=== PATIENT | female | born 1940 | race Caucasian/White ===

== ENCOUNTER 2023-10-15 11:52 | Day surgery (SDC) | payer OTHER, SELFPAY ==
[2023-10-11 09:50] VITALS: BMI 31.8
[2023-10-15] VITALS (11 sets, daily range): BP systolic 97–148; BP diastolic 38–68; PULSE 65–115; RESP 11–18; TEMP 36.2–36.9; O2SAT 93–100; BMI 31.8
--- NOTE | 2023-10-15 | DI.RAD.S_ITS ---
PROCEDURE: XR HIP W PEL IF DONE RT 2V INDICATIONS: RT TOTAL HIP TECHNIQUE: Multiple spot fluoroscopic intraoperative images. COMPARISON: None. FINDINGS: Multiple spot fluoroscopic intraoperative images demonstrate appropriate positioning of right hip arthroplasty components. Left hip arthroplasty is partially included. Overlying operative changes are present. IMPRESSION: Expected intraoperative appearance of a right hip arthroplasty. Approved by: Robe Reynaga M.D. on 10/16/2023 at 20:32
[2023-10-15] MEDS: MELOXICAM 7.5 MG TABLET PO (12:56)
[2023-10-15] MEDS: LACTATED RINGERS 1,000 ML 42 ML IV ×2 (12:56→16:46)
--- NOTE | 2023-10-15 13:01 | PM.PREOP ---
Pre-operative Note Interval Note History & Physical reviewed/Exam performed by Physician: Yes Changes to H&P: Yes H&P completed within 30 days and has changed as indicated here:: Upon review of old radiographs, left lower extremity has been longer than right ever since the initial left total hip replacement. On measurements of the non arthritic right hip from 2014, the left leg was 18 mm longer than the right. Therefore I will not restore equal leg lengths and the right side will be returned to its non arthritic state, which will still be shorter than the left side.
[2023-10-15] MEDS: TRANEXAMIC ACID 1,000 MG VIAL 1000 MG INJ ×2 (14:36→15:35)
[2023-10-15] MEDS: CEFAZOLIN 2 GM/100 ML PREMIX 100 ML IV ×2 (14:37→21:06)
--- NOTE | 2023-10-15 15:03 | SUR.OPER ---
Supine on padded Capac table with bilateral legs secured in padded positioning boots and suspended in positioning spars, operative leg in traction per surgeon. Head on one pillow. Arms secured on padded armboard <90 degrees abduction. Padded perineal post in place per surgeon.
[2023-10-15] MEDS: ROPIVACAINE/EPI/CLONIDINE/KET 50 ML SYRINGE INJ (15:27)
[2023-10-15] MEDS: SODIUM CHLORIDE IRRIG SOLUTION 250 ML, EPINEPHrine 1 MG IRR (15:29)
--- NOTE | 2023-10-15 18:03 | DI.RAD.S_ITS ---
PROCEDURE: XR HIP W PEL IF DONE RT 2V INDICATIONS: s/p total right hip arthroplasty TECHNIQUE: AP pelvis and lateral view of the hip acquired. COMPARISON: [facility] [place], [place]AS, XR PELVIS WITH LATERAL HIP RIGHT, 10/07/2023, 11:15. [facility] [place], CR, XR LUMBAR SPINE 2 OR 3 VIEWS, 09/07/2023, 16:32. [facility], CR, XR HIP W PEL IF DONE RT 2V, 10/15/2023, 15:20. FINDINGS: Bones: Patient is status post right hip arthroplasty, with hardware components in expected positions. The hip joint appears congruent. The visualized bony structures appear intact. Previous left hip arthroplasty is stable. Soft tissues: Overlying postoperative changes are noted. No suspicious soft tissue densities. IMPRESSION: Expected post-operative appearance of a hip arthroplasty. Dictated by: Millie Beatty M.D. on 10/15/2023 at 18:42 Approved by: Millie Beatty M.D. on 10/15/2023 at 18:43
--- NOTE | 2023-10-15 18:34 | SUR.PHASEI ---
Patient to recovery with no beebe catheter in place and no recorded urine output from the OR team. Bladder scan not available due to battery. Patient had a spinal during surgery and unable to move legs or regulate bladder. Inserted 16 serbian beebe catheter using sterile technique without difficulty. Clear yellow urine noted to drainage bag. Emptied 200 mls of urine.
[2023-10-15] MEDS: LACTATED RINGERS 1,000 ML 100 ML IV (19:43)
[2023-10-15] MEDS: DOCUSATE 100 MG CAPSULE PO (21:06)
[2023-10-15] MEDS: ASPIRIN EC 81 MG TABLET PO (21:06)
[2023-10-15] MEDS: IBUPROFEN 600 MG TABLET PO (21:08)
[2023-10-15] MEDS: ACETAMINOPHEN 325 MG TABLET 650 MG PO (21:09)
[2023-10-16] MEDS: ACETAMINOPHEN 325 MG TABLET 650 MG PO ×3 (01:51→13:04)
[2023-10-16] MEDS: IBUPROFEN 600 MG TABLET PO ×3 (01:52→13:05)
[2023-10-16 04:47] LABS: Hematocrit 30.3 % (36-46); Hemoglobin 10.4 g/dL (12.0-16.0)
[2023-10-16] MEDS: CEFAZOLIN 2 GM/100 ML PREMIX 100 ML IV (05:16)
[2023-10-16] MEDS: LACTATED RINGERS 1,000 ML 100 ML IV (05:18)
[2023-10-16 05:29] VITALS: BP 131/46; PULSE 70; RESP 17; TEMP 36.3; O2SAT 98
[2023-10-16 08:44] VITALS: BP 107/46; PULSE 83; RESP 19; TEMP 36.3; O2SAT 94
--- NOTE | 2023-10-16 08:50 | CM.DANOTE ---
DCP: Case received, EMR reviewed and met with patient. Introduced self and role. Was able to obtain information regarding patient's baseline activity status prior to hospitalization. DCP assessment completed with information currently available. Patient is an 83 year old female who admitted yesterday morning to the care of the hospitalist team. PCP: Dr. Escalera ([place] provider). Payer: confirmed: [facility]. Patient came to the hospital via private vehicle for a surgical procedure. Patient had right total hip surgery. Patient has history of osteoarthritis. Met with patient in her room. She was sitting up in bed, finished her breakfast, alert and oriented. Confirmed that she resides in [facility]. She resides alone, is a , but her friend, Kimmie, will be staying with her, and driving her to her ortho appointment follow up. Her sons live out of state, but will be with her after her friend leaves. Patient does have a cane and walker, at her baseline, she uses a cane. She has some stairs to get into her home, indicated, she has a really good banister rail that her had put in. Patient has not yet worked with physical therapy. P: DCP to continue to follow. Patient will work with [facility], and has outpatient therapy scheduled in [place]. Patient should be able to go home when deemed medically stable. Lorie Carson RN/Linen Supervisor Discharge Planning/Care Management CM Discharge Assessment Start: 10/16/23 08:46 Freq: Status: Active Protocol: Document 10/16/23 08:46 (Rec: 10/16/23 08:48 [id number]) Discharge Planning Assessment Assigned Family Reunification Specialist Lorie Carson RN/Linen Supervisor Advance Directives? No History Provided By Patient,Medical Record Prior Living Arrangements House Household Members none Type of transporation used prior to Drives own vehicle admit Independent with ADL's Yes Is patient alert and oriented? Yes Caregiver for Another No DME Already Rented / Owned FWW / Walker,Cane Patient/Family Preference OP PT Therapy Barriers to Discharge No Comment Patient's friend, Diya, will be staying with her until her sons can arrive. Discharge Plan Home Referrals Initiated None needed Whiteboard Updated in Patient Room with Yes name and ext. # of Family Reunification Specialist Review Status In Process Next Review Type Continued Stay Review Pre-Anesthesia Assessment Start: 10/11/23 09:50 Freq: Status: Active Protocol: Document 10/11/23 09:50 [facility] (Rec: 10/11/23 10:37 [facility] [id number]) Pre-Anesthesia Assessment Patient Information Reviewed Via Phone Assessment Assessment Completed With Patient Comment Outside labs/EKG scanned Primary Care Provider Neena Mancini PCP pre-op 09/17/23 scanned and in surgery folder for dos review Seen Specialist in Last 12 Months Yes Specialist Seen Binding Nicker,Orthopedist Primary Language Irish Laundrette Owner Required No Height 5 ft 6 in Weight 197 lb Body Mass Index (BMI) 31.8 Hearing Ability Normal Visual Assist Glasses Dentition Type Teeth, Natural Present Barriers to Learning None,Age related Hx Anesthesia Reactions No Hx Family Anesthesia Reaction No Hx Malignant Hyperthermia No Hx Blood Transfusions No Anesthesia Review Requested No Assistant Elementary Teacher No alcohol intake current alcohol intake frequency holidays/special occasions only Smoking Status Former smoker how long ago did patient quit smoking Quit age 23 Substance Use Type does not use Pain Present Pain Reported Musculoskeletal Symptoms Abnormal Gait,Difficulty Walking,Joint Pain,Muscle Weakness History of Falling (Recent or History of Yes ) Patient is completely paralyzed or No completely immobile Prosthesis or Orthotic Device Cane,Front Wheel Walker, Wheelchair Mental Status Oriented to own ability Is patient on oxygen? No Does patient have CLEMENT/SOB No Hx Sleep Apnea No Currently Taking a Beta Henri Yes: Metoprolol Hx Chest Pain No Hx SOB No Hx Syncope or Dizziness No Anti-Coagulant Therapy Yes: 81mg ASA-pt will check w/ Cardiology if needed to hold Has a Binding Nicker Yes: Pre-op visit 09/22/[address] Brandan Hamlin @ [facility] Cardiac Testing No: Per pt, Echo never ordered by Binding Nicker Hx Pacemaker/ICD No Pacemaker Rep Required? No Cardiac Clearance Received Yes Comment Cardiac records scanned and in surgery folder for dos Diet Type At Home Regular Dysphagia No Gastrointestinal Symptoms Constipation,Reflux Chronic UTI No Bladder Pattern Frequency Urinary Catheter Present No Hx Urinary Self Catheterization No Diabetes No HgbA1C 5.2 Date 09/05/23 Patient No Lactating No Hx Drug Resistant Organism No Presence of External or Internal Medical Yes: Left hip/knee prosthesis, Devices bilat eye IOLs, aortic valve Received a COVID vaccine? Yes Received all doses? Yes Marital Status / Lives With none Current Living Arrangements House Number of Floors (Floors) One Floor Support System Child/Children,Friend(s) Does the Patient Have Assistance After Yes: Friend will stay w/pt to Surgery assist with care at DC with sons assisting prn Patient Discharge Plan Description Return Home Comment Pt advised overnight length of stay per surgeon Feels Safe in Current Environment Yes Been Physically Hurt or Threatened By a No Person in Current Environment Do you have thoughts of harming yourself None or others? Are you currently considering suicide? No Do you have a plan to hurt yourself or No Plan others? Do You Have Any Spiritual Beliefs That No May Affect Your HC Choices? Do You Have Any Cultural Practices That No May Affect Your HC Choices? Comment Mat Who Can We Speak to About Patient's Care Family, friends Identifying Code for Release of Patient Declines to issue Information Health Care Proxy/Next of Kin Neal (son) Health Care Proxy Emergency Contact Name Jus (son) Niraj (friend) Emergency Contact Phone Number Jus: [phone] Niraj: Advance Directives? No Power of Lap Cutter No PAC Instructions Do not shave/clip surgical site,Durable medical equipment ,Medications to take/avoid, Nasal antibiotic,No ETOH/ petroleum product on skin DOS, NPO,Post-op transportation,Pre -surgical wash,Sensory aids, Sturdy shoes/comfortable clothes,Do not bring valuables and remove jewelry
--- NOTE | 2023-10-16 09:04 | DI.RAD.S_ITS ---
PROCEDURE: XR HIP W PEL IF DONE RT 2V INDICATIONS: Post-op GUILLE.... TECHNIQUE: AP pelvis with lateral view(s) of the right hip(s). COMPARISON: [facility], [place], XR HIP W PEL IF DONE RT 2V, 10/15/2023, 15:20. [facility] [place], [place], XR PELVIS WITH LATERAL HIP RIGHT, 10/07/2023, 11:15. [facility], [place], XR HIP W PEL IF DONE RT 2V, 10/15/2023, 18:02. FINDINGS: Bones: No fractures or dislocations. Pelvic ring appears intact. No suspicious bony lesions. Stable appearance of bilateral hip arthroplasties. Hardware is intact without hardware fracture or periprosthetic lucency to suggest loosening. Alignment is stable. Soft tissues: The visualized bowel gas pattern is normal. No suspicious soft tissue calcifications. Postsurgical soft tissue changes are present. IMPRESSION: Stable appearance of bilateral hip arthroplasties noting recent right postsurgical change. Dictated by: Millie Beatty M.D. on 10/16/2023 at 12:36 Approved by: Millie Beatty M.D. on 10/16/2023 at 12:38
[2023-10-16] MEDS: AMLODIPINE 5 MG TABLET PO (09:26)
[2023-10-16] MEDS: hydroCHLOROthiazide 25 MG TABLET 12.5 MG PO (09:26)
[2023-10-16 09:27] VITALS: BP 117/59; PULSE 82
[2023-10-16] MEDS: TRAMADOL 50 MG TABLET PO (09:27)
[2023-10-16] MEDS: ASPIRIN EC 81 MG TABLET PO (09:27)
[2023-10-16] MEDS: LOSARTAN 25 MG TABLET PO (09:27)
[2023-10-16] MEDS: DOCUSATE 100 MG CAPSULE PO (09:27)
[2023-10-16] MEDS: METOPROLOL IR 50 MG TABLET PO (09:27)
--- NOTE | 2023-10-16 09:39 | P.DS_ITS ---
History of Present Illness History of Present Illness Date Patient Seen: 10/16/23 Time Patient Seen: 09:39 Chief complaint: Right GUILLE *OPB* 10/15 Narrative: Pleasant 83 yo female who presented to Dr Price c/o debilitating right hip pain with no relief from conservative measures, including cortisone injection. She elected to proceed with total hip arthroplasty. Discharge Providers Provider Discharge Date: 10/16/23 Consults: 10/15/23 10:54 Consult to Anesthesiology Routine Comment: Consulting Provider: Anesthesiologist Reason for consultation: Regional block for post operative pain control 10/15/23 18:46 Consult to Discharge Planning Routine Comment: Consult to Discharge Planning Routine Comment: Consult to Occupational Therapy Evaluate & Treat Comment: Physician Instructions: Evaluate and treat Consult to Occupational Therapy Evaluate & Treat Comment: Physician Instructions: Evaluate and treat Consult to Physical Therapy Evaluate & Treat Comment: Physician Instructions: post op GUILLE protocol Consult to Physical Therapy Evaluate & Treat Comment: Physician Instructions: post op GUILLE protocol Discharge provider: Brenda House PA-C Summary Hospital Course Discharge Diagnosis: Right hip osteoarthritis, s/p right total hip arthroplasty. Hospital Course: Ms Rai's hospital course was unremarkable. On the morning of POD# 1, she was feeling well and wanted to go home. Her pain was well-controlled with oral medication. She had a urinary catheter in place d/t h/o urinary frequency; this will be removed prior to discharge. She was eating without difficulty. She had not yet been evaluated by PT. Exam Vital Signs (past 8 hours): - 10/16/23 05:29 10/16/23 08:44 10/16/23 09:27 Temperature 97.4 F L 97.4 F L Pulse Rate 70 83 82 Respiratory Rate 17 19 Blood Pressure 131/46 L 107/46 L 117/59 L Pulse Oximetry 98 94 Oxygen Flow Rate 0 0 Oxygen Delivery Method Room Air Oxygen Flow Rate 0 Narrative Exam Narrative: 5/5 strength in DF, PF, EHL; 4/5 hip flexors, quadriceps, hamstrings on right. Sensation to light touch intact throughout RLE; calf soft and compressible. Aquacel dressing CDI. Objective Labs 10/16/23 04:32 Labs: Laboratory Results - last 24 hr 10/16/23 04:32 Hgb 10.4 L Hct 30.3 L PFSH Medical History (Updated 10/11/23 @ 10:41 by Clotilde Jackson RN) History of COVID-19 (2022) Stress Easy bruisability Osteoarthritis Elevated cholesterol Degenerative scoliosis HTN (hypertension) Aortic ectasia CAD in [place] artery Nonrheumatic aortic (valve) stenosis Surgical History (Updated 10/11/23 @ 10:17 by Clotilde Jackson RN) Hx of tonsillectomy Hx of appendectomy H/O aortic valve replacement (05/2016) Hx of bilateral cataract extraction History of total left knee replacement (~2013) History of total left hip replacement (2014) Social History household members: none Smoking Status: Former smoker alcohol intake: current Discharge Assessment & Plan Assessment and Plan Assessment: Left knee osteoarthrits, s/p left total knee arthroplasty Plan of Treatment: Will obtain repeat xray of right hip after PT today to verify placement. If PT agrees and xray WNL, pt can discharge home. Has meds for postop. Outpt PT, f/u in office in 2 weeks as scheduled. Discharge Plan Discharge Plan Patient Disposition: Home Provider Discharge Comment: Follow up at [facility] in 2 weeks for post-op appointment Discharge orders & Medications Discharge Orders: Discharge (Order); Ordered 10/16/23 Ordered By: Brenda House Prescriptions: Continued amlodipine 5 mg Tablet 5 mg PO DAILY aspirin 81 mg Tablet,Delayed Release (Dr/Ec) 81 mg PO DAILY acetaminophen 500 mg Tablet 1,000 mg PO BID losartan 25 mg Tablet 25 mg PO DAILY metoprolol tartrate 50 mg Tablet 50 mg PO BID docusate sodium [Colace] 100 mg Capsule 100 mg PO BID Patient Comments: takes 200mg qam, 100mg qam omeprazole 20 mg Capsule,Delayed Release(Dr/Ec) 20 mg PO 2XW Rx Instructions: Takes on Wednesday & Wednesday hydrochlorothiazide 12.5 mg Tablet 12.5 mg PO DAILY Follow up/Referrals: Margarito Price MD [Physician] - 10/25/23 1:30 pm (Follow up w/ Brenda House PA-C, at [facility] office in [place].) Diet/Activity/Treatments Diet: Diet as Tolerated Activity: Weightbearing as tolerated to right leg, anterior hip precautions. Cold/Heat Therapy: Ice to hip as needed for pain. Skin/Wound/Dressing Care Report to your healthcare provider any signs of infection, such as:: chills, fever, night sweats, unusual drainage and unusual redness Dressing: May shower. Leave dressing in place until follow up in office. No bathing or otherwise soaking incision. Call the office if the dressing becomes saturated inside. Visit Report/Discharge Packet Instructions: DI for Hip Replacement, DI for Prescription Opioid Use Stand Alone Forms: Patient Portal/API, Surgery Discharge Discharge Data Attending Provider: Margarito Price
--- NOTE | 2023-10-16 10:30 | PT.IIE ---
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) Hx of appendectomy Hx of bilateral cataract extraction Hx of tonsillectomy Medical History (Last Updated 10/11/23 @ 10:41 by Clotilde Jackson RN) Aortic ectasia CAD in [place] artery Degenerative scoliosis Easy bruisability Elevated cholesterol History of COVID-19 (2022) HTN (hypertension) Nonrheumatic aortic (valve) stenosis Osteoarthritis Stress Physical Therapy Inpatient Evaluation/Re-Eval M1 PT/OT-IP Prior Functional Status Start: 10/16/23 12:27 Freq: NEEDED Status: Active Protocol: Document 10/16/23 10:30 AB (Rec: 10/16/23 12:41 AB [id number]) Medical Review Prior Functional Status Medical History Reviewed Yes Communication able to make needs known Mobility and Gait pt stated that she was modified independent with all mobilities and ambulation using a SBQC but uses a FWW at [facility] for toileting needs Social History Household Members none Living Arrangements House Number of Floors (Floors) One Floor Number of Stairs To Enter/Railing? 8 steps wide B rails to enter the house. pt stated that she usually uses the R rail and her SBQC Home Environment Standard Height Toilet,Walk in Shower,Built-In Shower Seat Home Equipment Front Wheel Walker,Quad Cane, Raised Toilet Seat Without Armrests,Hand Held Shower,Grab Bars In Shower Additional Social History Comment pt's friend will be staying with her for ~ 1 week to assist M2 PT-IP Current Condition Start: 10/16/23 12:27 Freq: NEEDED Status: Active Protocol: Document 10/16/23 10:30 AB (Rec: 10/16/23 12:41 AB [id number]) Physical Therapy Current Condition Current Condition Evaluation Date 10/16/23 Treatment Diagnosis s/p R GUILLE anterior; difficulty in walking Onset Date 10/15/23 M3 PT-IP Subjective Start: 10/16/23 12:27 Freq: NEEDED Status: Active Protocol: Document 10/16/23 10:30 AB (Rec: 10/16/23 12:41 AB [id number]) Subjective Physical Therapy Visit Type Type Initial Evaluation Visit Start Time 10:30 Visit Stop Time 11:45 Number of GROUNDS FOREMAN Visits 75 Physical Therapy Visit Comments Patient Comments agreeable to do PT Therapy Pain Assessment Pain When Pain Assessed During Mobility Pain Present Pain Present Pain Reported Location Right Hip Intensity 5 Scale Used Numeric (0 - 10) Pain Behaviors Guarding,Holding Area Pain Management Techniques Apply Cold,Distraction, Modification of Treatment,Re- positioning,Timing of Activity with Medications M4 PT-IP Mobility and Gait Start: 10/16/23 12:27 Freq: NEEDED Status: Active Protocol: Document 10/16/23 10:30 AB (Rec: 10/16/23 12:41 AB [id number]) PT-Bed Mobility Assessment Supine to Sit Supine to Sit Standby Assistance PT-Transfer Assessment Sit to and From Stand Sit to and from Stand Contact Guard Assistance,1 Person Assistance,Use of Upper Extremities Equipment Transfer Assistive Device Gait Belt,Front Wheeled Walker Orthotic/Prosthetic Devices or Brace: No Transfers Transfer Destination Bed Transfer Technique ambulated Transfer Ability Level of Assist Contact Guard Assistance,1 Person Assistance,Use of Upper Extremities Comments Mobility Comments pt supine in bed and agreeable to do PT. pt's friend in room and plans to stay with pt at home to assist her. obtained PLOF and home setup. educated pt and friend regarding pt's R hip anterior precautions and wBAT. post-op folder provided to pt and reviewed contents. pt initially has difficulty recalling precautions but after a few repetitions, was able to recall.BP: 124/68. pt completed supine to sit SBA and cues for precautions. pt was able to sit on EOB SBA. completed sit to stand cGA and ambulated to the chair ~ 12 ft using FWW CGA and with initial cues for precautions and safety. pt sat on the chair. Caregiver training conducted. educated pt's friend on how to use safety belt and how to assist pt. pt' s friend was able to put safety belt on and assist pt with sit to stand and ambulation in the hallway using FWW CGA. stair climbing training conducted. educated pt and friend on on to to stairs. pt completed up/down steps using R rail + SBQC min A with pt's friend assisting and completed safely. assisted pt back to her room. pt ambulated from the w/c to the chair using FWW with her friend assisting her CGA. positioned pt on the chair. call light and table placed within reach. educated pt on bed mobility and car transfers. pt and friend without further concerns. Gait Assessment Gait Gait Assistance Required: Contact Guard Assist Distance (Feet) 100 Able to Maintain Weight Bearing Status Yes During Gait Assistive Devices Assistive Device Gait Belt,Front Wheeled Walker Orthotic/Prosthetic Devices or Brace: No Gait Deviations General Gait Pattern Decreased Feet Clearance Factors Limiting Gait Function Factors Limiting Gait Function Decreased Activity Tolerance, Decreased Strength,Limited Range of Motion,Pain,Poor Balance,Poor Safety Awareness Stair Climbing Assessment Evaluation Level of Assist On Stairs Minimal Assistance Devices Stair Climbing Assistive Devices Small Base Quad Cane,Right Railing Technique/Endurance Stair Climbing Direction Ascend and Descend Stair Climbing Technique Step to Step Number of Steps Climbed 3 Query Text: Stair Climbing Set # Repetitions (reps) 1 PT-Balance Assessment Sitting Balance and Reactions Static Sitting Balance Ability Good Dynamic Sitting Balance Ability Good Standing Balance and Reactions Static Standing Balance Ability Fair Dynamic Standing Balance Ability Fair Device Used FWW M5 PT-IP Objective Assessments Start: 10/16/23 12:27 Freq: NEEDED Status: Active Protocol: Document 10/16/23 10:30 AB (Rec: 10/16/23 12:41 AB [id number]) Orientation Orientation/Cognition Level of Alertness Alert Orientation Name Language Function Ability No Deficits Noted Safety Awareness Decreased Safety Awareness Memory Description No Deficits Noted Gross Range of Motion Lower Extremity ROM Assessment Within Functional Limits Strength Lower Extremity Strength Assessment Right Impaired Hip 3-/5 Knee 4-/5 Sensation Assessment Sensation Gross Sensation WNL Muscle Tone Muscle Tone WNL Yes M6 PT-IP Treatment Start: 10/16/23 12:27 Freq: NEEDED Status: Active Protocol: Document 10/16/23 10:30 AB (Rec: 10/16/23 12:41 AB [id number]) Physical Therapy Treatment Education Education Provided Precautions,Weight Bearing Status,Post-Op Packet,Safety M7 PT-IP Assessment and Plan Start: 10/16/23 12:27 Freq: NEEDED Status: Active Protocol: Document 10/16/23 10:30 AB (Rec: 10/16/23 12:41 AB [id number]) PT Summary Assessment and Plan Potential Rehabilitation Potential Fair Status of Condition at Evaluation Stable Summary Impairments Pain,ROM,Strength,Balance,Bed Mobility,Transfers,Gait, Activity Tolerance Assessment Summary pt is an 83 y/o F s/p R GUILLE anterior approach POD 1. pt has R hip anterior precautions and is WBAT. pt requiring CGA with mobility using FWW and occasional cues for precautions and safety. caregiver training conducted and pt's friend was able to assist pt safely. pt stated that she has outpt PT set up. pt may go home when medically stable. Goals Bed Mobility Goal Independent Transfer Goal Independent,Front Wheeled Walker Gait Goal Independent,Front Wheel Walker Gait Distance 300 Other Goals up/down 8 steps R rail + SBQC mod I Days to Meet Goals 5 Frequency of Treatment Frequency Of Treatment Twice a Day Treatment Plan Physical Therapy Treatment Plan Bed Mobility Training,Transfer Training,Gait Training, Therapeutic Exercise,Balance Retraining,Post Op Education, Discharge Planning,Hot or Cold Pack,Neuromuscular Re-ed, Coordination Retraining,Manual Therapy Precautions Anterior Hip Precautions No Hip Extension,No Hip External Rotation Weight Bearing Status Weight Bearing Status Weight Bear as Tolerated Allowed Weight Bearing Amount (enter % RLE WBAT or #) (%) Recommendations To Nursing Amount of Assist Needed 1 Person Assist Discharge Recommendations PT Discharge Recommendations Home with Assistance, Outpatient PT Transportation Needs at Discharge Private Vehicle
--- NOTE | 2023-10-16 10:30 | PT.IIE ---
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 Degenerative scoliosis Easy bruisability Elevated cholesterol History of COVID-19 (2022) HTN (hypertension) Nonrheumatic aortic (valve) stenosis Osteoarthritis Stress Physical Therapy Inpatient Evaluation/Re-Eval M1 PT/OT-IP Prior Functional Status Start: 10/16/23 12:27 Freq: NEEDED Status: Active Protocol: Document 10/16/23 10:30 AB (Rec: 10/16/23 12:41 AB [id number]) Medical Review Prior Functional Status Medical History Reviewed Yes Communication able to make needs known Mobility and Gait pt stated that she was modified independent with all mobilities and ambulation using a SBQC but uses a FWW at [facility] for toileting needs Social History Household Members none Living Arrangements House Number of Floors (Floors) One Floor Number of Stairs To Enter/Railing? 8 steps wide B rails to enter the house. pt stated that she usually uses the R rail and her SBQC Home Environment Standard Height Toilet,Walk in Shower,Built-In Shower Seat Home Equipment Front Wheel Walker,Quad Cane, Raised Toilet Seat Without Armrests,Hand Held Shower,Grab Bars In Shower Additional Social History Comment pt's friend will be staying with her for ~ 1 week to assist M2 PT-IP Current Condition Start: 10/16/23 12:27 Freq: NEEDED Status: Active Protocol: Document 10/16/23 10:30 AB (Rec: 10/16/23 12:41 AB [id number]) Physical Therapy Current Condition Current Condition Evaluation Date 10/16/23 Treatment Diagnosis s/p R GUILLE anterior; difficulty in walking Onset Date 10/15/23 M3 PT-IP Subjective Start: 10/16/23 12:27 Freq: NEEDED Status: Active Protocol: Document 10/16/23 10:30 AB (Rec: 10/16/23 12:41 AB [id number]) Subjective Physical Therapy Visit Type Type Initial Evaluation Visit Start Time 10:30 Visit Stop Time 11:45 Number of [employer] Visits 0 Physical Therapy Visit Comments Patient Comments agreeable to do PT Therapy Pain Assessment Pain When Pain Assessed During Mobility Pain Present Pain Present Pain Reported Location Right Hip Intensity 5 Scale Used Numeric (0 - 10) Pain Behaviors Guarding,Holding Area Pain Management Techniques Apply Cold,Distraction, Modification of Treatment,Re- positioning,Timing of Activity with Medications M4 PT-IP Mobility and Gait Start: 10/16/23 12:27 Freq: NEEDED Status: Active Protocol: Document 10/16/23 10:30 AB (Rec: 10/16/23 12:41 AB [id number]) PT-Bed Mobility Assessment Supine to Sit Supine to Sit Standby Assistance PT-Transfer Assessment Sit to and From Stand Sit to and from Stand Contact Guard Assistance,1 Person Assistance,Use of Upper Extremities Equipment Transfer Assistive Device Gait Belt,Front Wheeled Walker Orthotic/Prosthetic Devices or Brace: No Transfers Transfer Destination Bed Transfer Technique ambulated Transfer Ability Level of Assist Contact Guard Assistance,1 Person Assistance,Use of Upper Extremities Comments Mobility Comments pt supine in bed and agreeable to do PT. pt's friend in room and plans to stay with pt at home to assist her. obtained PLOF and home setup. educated pt and friend regarding pt's R hip anterior precautions and wBAT. post-op folder provided to pt and reviewed contents. pt initially has difficulty recalling precautions but after a few repetitions, was able to recall.BP: 124/68. pt completed supine to sit SBA and cues for precautions. pt was able to sit on EOB SBA. completed sit to stand cGA and ambulated to the chair ~ 12 ft using FWW CGA and with initial cues for precautions and safety. pt sat on the chair. Caregiver training conducted. educated pt's friend on how to use safety belt and how to assist pt. pt' s friend was able to put safety belt on and assist pt with sit to stand and ambulation in the hallway using FWW CGA. stair climbing training conducted. educated pt and friend on on to to stairs. pt completed up/down steps using R rail + SBQC min A with pt's friend assisting and completed safely. assisted pt back to her room. pt ambulated from the w/c to the chair using FWW with her friend assisting her CGA. positioned pt on the chair. call light and table placed within reach. educated pt on bed mobility and car transfers. pt and friend without further concerns. Gait Assessment Gait Gait Assistance Required: Contact Guard Assist Distance (Feet) 100 Able to Maintain Weight Bearing Status Yes During Gait Assistive Devices Assistive Device Gait Belt,Front Wheeled Walker Orthotic/Prosthetic Devices or Brace: No Gait Deviations General Gait Pattern Decreased Feet Clearance Factors Limiting Gait Function Factors Limiting Gait Function Decreased Activity Tolerance, Decreased Strength,Limited Range of Motion,Pain,Poor Balance,Poor Safety Awareness Stair Climbing Assessment Evaluation Level of Assist On Stairs Minimal Assistance Devices Stair Climbing Assistive Devices Small Base Quad Cane,Right Railing Technique/Endurance Stair Climbing Direction Ascend and Descend Stair Climbing Technique Step to Step Number of Steps Climbed 3 Query Text: Stair Climbing Set # Repetitions (reps) 1 PT-Balance Assessment Sitting Balance and Reactions Static Sitting Balance Ability Good Dynamic Sitting Balance Ability Good Standing Balance and Reactions Static Standing Balance Ability Fair Dynamic Standing Balance Ability Fair Device Used FWW M5 PT-IP Objective Assessments Start: 10/16/23 12:27 Freq: NEEDED Status: Active Protocol: Document 10/16/23 10:30 AB (Rec: 10/16/23 12:41 AB [id number]) Orientation Orientation/Cognition Level of Alertness Alert Orientation Name Language Function Ability No Deficits Noted Safety Awareness Decreased Safety Awareness Memory Description No Deficits Noted Gross Range of Motion Lower Extremity ROM Assessment Within Functional Limits Strength Lower Extremity Strength Assessment Right Impaired Hip 3-/5 Knee 4-/5 Sensation Assessment Sensation Gross Sensation WNL Muscle Tone Muscle Tone WNL Yes M6 PT-IP Treatment Start: 10/16/23 12:27 Freq: NEEDED Status: Active Protocol: Document 10/16/23 10:30 AB (Rec: 10/16/23 12:41 AB [id number]) Physical Therapy Treatment Education Education Provided Precautions,Weight Bearing Status,Post-Op Packet,Safety M7 PT-IP Assessment and Plan Start: 10/16/23 12:27 Freq: NEEDED Status: Active Protocol: Document 10/16/23 10:30 AB (Rec: 10/16/23 12:41 AB [id number]) PT Summary Assessment and Plan Potential Rehabilitation Potential Fair Status of Condition at Evaluation Stable Summary Impairments Pain,ROM,Strength,Balance,Bed Mobility,Transfers,Gait, Activity Tolerance Assessment Summary pt is an 83 y/o F s/p R GUILLE anterior approach POD 1. pt has R hip anterior precautions and is WBAT. pt requiring CGA with mobility using FWW and occasional cues for precautions and safety. caregiver training conducted and pt's friend was able to assist pt safely. pt stated that she has outpt PT set up. pt may go home when medically stable. Goals Bed Mobility Goal Independent Transfer Goal Independent,Front Wheeled Walker Gait Goal Independent,Front Wheel Walker Gait Distance 300 Other Goals up/down 8 steps R rail + SBQC mod I Days to Meet Goals 5 Frequency of Treatment Frequency Of Treatment Twice a Day Treatment Plan Physical Therapy Treatment Plan Bed Mobility Training,Transfer Training,Gait Training, Therapeutic Exercise,Balance Retraining,Post Op Education, Discharge Planning,Hot or Cold Pack,Neuromuscular Re-ed, Coordination Retraining,Manual Therapy Precautions Anterior Hip Precautions No Hip Extension,No Hip External Rotation Weight Bearing Status Weight Bearing Status Weight Bear as Tolerated Allowed Weight Bearing Amount (enter % RLE WBAT or #) (%) Recommendations To Nursing Amount of Assist Needed 1 Person Assist Discharge Recommendations PT Discharge Recommendations Home with Assistance, Outpatient PT Transportation Needs at Discharge Private Vehicle
--- NOTE | 2023-10-16 10:47 | P.OP_ITS ---
Operative Date/Time/Diagnoses Date of procedure: 10/15/23 Pre-op diagnosis: Right hip arthritis Post-op diagnosis: same Procedure & Clinicians Procedure: Right total hip arthroplasty with hybrid cemented fixation and mono block dual mobility articulation Same procedure as scheduled: Yes Surgeon: Margarito Price [employer] Supervisor: Irena Beatty Anesthesia Type: General and Local Operative Notes Estimated Blood Loss (mL): 500 Procedure in detail: Implants: Depuy Total Hip Arthroplasty: * Depuy Bimentum size 61 cup? * Depuy Donley cemented femoral stem size 5 standard offset? * 28 mm +5 ceramic femoral head?with outer dual mobility head Procedure Summary: Complicated surgery for multiple reasons outlined below. 1. Patient had had a left total hip arthroplasty performed over 10 years ago. This had been performed at an outside facility. She had significant lengthening after that left total hip. An x-ray in 2014 demonstrated a 18 mm limb length discrepancy with the left side longer than the right. This was at a time when the right hip was non arthritic. The limb length discrepancy had progressed to 33 mm by the time of this surgery. Because so much of this significant limb length discrepancy was due to lengthening on the contralateral side I did not intend to equalize her leg lengths. I discussed with her that her right leg would remain short following surgery prior to the procedure and explained the reasons why. The eventual construct did leave the right side short relative to the left 2. Patient has significant spinal degeneration with 18? of sacral slope standing and 12? of sacral slope in the seated position, indicative of spinal pelvic stiffness. Because of this I elected to use a dual mobility articulation. As this was a primary setting I felt that a mono block component would be appropriate in order to maximize head size and limit the possibility of any sort of metal ion formation between the liner and the cup. Due to her bone quality, it was challenging to achieve a good pinch fit with the mono block component and it ended up achieving of pinch fit in a slightly more vertical position than I would typically aim for with an anterior total hip. Abduction on the postope rative radiographs measured 50?. During earlier portions of the case the cup was in a more horizontal position however it was dislodged during trialing which necessitated removing all trials and reaming deeper to achieve better interference fit. After this repeat reaming the cup would only achieve a good pinch fit in that abducted position 3. Patient had significant acetabular erosion secondary to her superior lateral erosion of the hip. This resulted in needing a larger acetabular component than would be typical for a patient of her size. I began with a size 55 Reamer and found that it did not even approach filling her reno-sparks acetabulum. I increased to 57, and then 59, and finally 61 mm reamers before achieving any sort of interference fit with her anterior and posterior wall. I utilized a single Reamer technique in order to maximize concentric positioning of the Reamer. I was able to achieve a good concentric ream with that 61 mm Reamer although as mentioned previously I did have to return later in the case to repeat reaming to achieve a good pinch fit 4. The patient is 84 years old. She lives independently, is a community ambulator with minimal medical comorbidities and had severe symptoms secondary to this degeneration. I felt that she was an appropriate surgical candidate based on her overall medical condition but given her age, felt that cemented fixation would be most appropriate for her. I utilized a composite beam construct as literature has shown there is a decreased risk postoperative fracture for composite beam cemented stems relative to polished taper slip cemented stems. Unfortunately the large lateral shoulder in the broach easily passed down to an appropriate position but became wedged during broach removal. This put a bending moment on the greater trochanter and resulted in fracture of the tip of the greater trochanter. I was able to palpate this fragment and could feel that the external rotators, which I had not released, were attached to it. It also had distal soft tissue attachments. The abductor muscles could be palpated attaching to the intact femoral shaft. I attempted to manipulate it into position with the hip in neutral extension but was unable to do so. In the broaching position I was able to use retractors to manipulate it until it returned to its reno-sparks orientation. I reinserted the broach and this further manipulated it into a reduced position. I then cemented the stem and pressurized the cement mantle against the greater trochanter fragment, as well as around the lateral shoulder of the implant and an attempt to maintain its position. I performed a trial reduction with trial implants as well as a dislocation and final reduction and vigorous trialing without dislodging the greater trochanter fragment. Procedure in Detail: This patient was seen preoperatively and evaluated for hip pain which was refractory to numerous nonoperative treatment modalities. Their hip pain cor related with radiographic changes demonstrating significant degeneration in the hip joint. The risks and benefits of continued nonoperative management versus operative management were discussed at length and all of the patient?s questions were answered. Additional educational materials providing further details beyond our discussion in clinic were provided via a publicly available patient educatio n video which included the incidence of medical complications associated with total hip arthroplasty, reasons for revision following total hip arthroplasty, and patient satisfaction rates following total hip arthroplasty. That video can be accessed at [email or web address] . With this understanding of the risks inherent to the procedure, the patient elected to move forward with operative management. Following preoperative optimization, the patient was scheduled for surgery. The patient was met in the preoperative holding area the day of the procedure and all questions were answered. The patient?s nares were swabbed with betadine in order to decolonize them from MRSA. Informed consent was signed and the operative limb was marked with indelible ink.? The patient was brought back to the operating room where anesthesia was induced. The patient was transferred to the [place] table and all bony prominences were padded. The operative site was prepped and draped in the usual sterile fashion. Prior to incision, tranexamic acid and cefazolin were administered. Operative templating images were displayed demonstrating the anticipated implant sizes and correct operative extremity. A timeout procedure was performed verifying the patient?s identity, medical comorbidities, allergies, relevant medications, anesthesia type and the surgical plan. All present were in agreement. The assistance of a physician home based assistant was required for positioning, room setup, soft tissue retraction and wound closure. Without this assistance, the procedure would have been significantly more challenging and time consuming.?? A direct anterior approach to the hip was utilized. This was performed with a longitudinal incision through a Heuter interval. The incision was planned 2 cm distal and 2 cm lateral to the ASIS extending towards the lateral patella, in line with the muscle body of the TFL. Following incision, the subcutaneous tissue was dissected while taking care to avoid injury to the lateral femoral cutaneous nerve. The fascia overlying the TFL was identified by dissecting off the overlying fat and identifying perforating vessels to the TFL. The TFL fascia was incised and dissected away from the medial border of the TFL. A cobra retractor was placed over the superior femoral neck between the abductors and the hip capsule and used to reflect the TFL laterally. A Bandera self-retainer was then placed in the distal aspect of the wound between the TFL and the rectus femoris. This was tensioned to open up the direct anterior interval and the lateral circumflex vessels were identified and coagulated using electrocautery. The floor of the TFL fascia was incised, exposing the pericapsular fat overlying the hip capsule. A second cobra retractor was placed on the inferior femoral neck. A double-bent soft tissue retractor was placed on the anterior wall of the acetabulum and used to tension the reflected head of rectus femoris, which was then released in order to limit soft tissue tension. A capsulotomy was made in the midline of the anterior hip capsule in line with the femoral neck ending at the vastus tubercle. The double-bent retractor was removed in order to limit the amount of time that a soft tissue retractor remained on the anterior wall and protect the femoral nerve. Tag stitches were placed in the superior and inferior leaflets of the hip capsule. An Jose Angel soft tissue retractor was introduced over the tag stitches and tensioned in the interval between the rectus femoris and the TFL in order to retract and protect those muscles. The cobra retractors were replaced intracapsularly, with one over the superior neck in the pocket created by the base of the greater trochanter and the other on the femoral head. The capsulotomy was extended laterally to the base of the greater trochanter and medially to the lesser trochanter. This required externally rotating the hip. Once the lesser trochanter had been identified, a neck cut was planned according to measurements from preoperative templating. A ruler was cut at the length measured between the superior aspect of the lesser trochanter and the collar of the prosthesis. This line was extended towards the inferior aspect of the lateral cobra retractor to plan a cut which would leave minimal residual femoral neck laterally. The neck was cut at 60 degrees of external rotation along that line. A second cut was performed to remove a large napkin ring and facilitate head extraction. The napkin ring cut and femoral head were removed.?? A broad anterior wall retractor was placed between the labrum and the anterior capsule so that the anterior capsule would prevent capturing and pinching the femoral nerve anteriorly. An additional retractor was placed on the posterior wall. External rotation and traction were applied through the [place] table so that the cut surface of the femoral neck would not restrict access to the acetabulum. The labrum was excised sharply and the pulvinar was excised with electrocautery to limit bleeding from branches of the obturator artery. Acetabular reamers were selected based on preoperative templating and measurements of the excised femoral head. These were introduced into the acetabulum. Fluoroscopy was utilized to replicate a standing AP pelvis radiograph by centering over the pelvis, rotating until there was appropriate symmetry between the obturator foramen, and introducing caudal tilt to match the position of the pubic symphysis relative to the sacrococcygeal junction according to the patient?s anatomy. Fluoroscopy was utilized to ensure appropriate reaming depth. Once satisfied with the reaming depth corresponding to the preoperative template and the pinch fit between the columns, an appropriate sized acetabular cup was selected which would provide 1 mm of press-fit. This cup was introduced and manipulated until appropriate abduction and anteversion angles were obtained with careful attention to appropriate abduction and anteversion angles as evaluated by the position of the cup relative to the anterior and posterior ramsay of the acetabulum and the AP fluoroscopy which recreated the patient?s standing radiograph. The cup was impacted into place. Peripheral osteophytes were removed. Attention was then turned to the femur. All retractors were removed, traction was released, a retractor was placed in the interval between the hip capsule and the gluteus minimus, and the hip was externally rotated to 90 degrees. Traction was applied through the [place] table to tension the lateral capsule and this was released using electrocautery. Traction was released and a [place] hook was placed posteriorly around the proximal femur at the level of the vastus ridge. The t able height was lowered in order to restrict the tension on the anterior structures during hip hyperextension to limit the risk of femoral nerve palsy. With traction off and the hip at 90 degrees of external rotation, the hip was hyperextended and adducted while manually elevating the femur away from the acetabulum with the [place] hook to ensure it would not be caught behind the greater trochanter. An asymmetric retractor was placed over the calcar and a broad double-pronged retractor was placed over the greater trochanter. The tag stitch capturing the lateral leaflet of the capsule was moved to the medial side, leaving the conjoined and piriformis tendons isolated in the face of the greater trochanter. The hip was externally rotated and elevated. A release of the conjoined tendon was not necessary in order to obtain adequate exposure for broaching. The canal was opened with an opening broach and a rasp was used to remove cancellous bone. A rongeur was used to remove the residual lateral bone at the base of the greater trochanter to avoid placing the stem in varus. The femur was then broached to the appropriate sized stem yielding good rotational fit and fill of the canal as well as appropriate version of the stem trial. Neck and head trials were placed, all retractors were removed and the hip was returned to neutral abduction and extension. I then reduced the hip. An AP pelvis fluoroscopic image matching the preoperative standing radiograph was obtained with both lesser trochanters visible and both hips in 40 degrees of external rotation. This demonstrated that the cup position had changed since my initial radiographs prior to stem insertion. An AP hip fluoroscopic image was obtained with the hip in neutral rotation which demonstrated appropriate canal fit. At this point in the procedure I noted that the tip of the greater trochanter had broken off and was a loose piece. Interestingly this was quite difficult to visualize on fluoroscopic images. Having both a loose cup given the absence of screws in the mono block cup and a fracture of the tip of the greater trochanter, I elected to deal with the cup 1st. I dislocated the hip, returned to the broaching position and removed the broach. I temporarily placed packing down the canal to limit bleeding while working on the cup. I returned to a neutral position, removed and cleaned the acetabular component, and reinserted the 61 mm Reamer. I reamed slightly deeper to improve my pinch fit. I impacted this into place. In order to achieve a good pinch fit I had to place the component in slightly increased abduction of 50?. Less abducted cup positions did not achieve satisfactory pinch fit. I wanted to maintain a mono block component in order to maximize the head size given her spinal pelvic stiffness. I attempted to reduce the greater trochanter fragment in neutral extension but was not able to do so. I therefore returned to the broaching position. In the broaching position I was able to use retractors to manipulate the greater trochanter piece back into place. As I had not released the conjoined tendon or piriformis, this maintained a proximal soft tissue attachment. I could also palpate a distal soft tissue attachment. I could palpate the abductor tendons inserting onto the intact femur. I placed a broach back down the canal and this further reduced the greater trochanter piece. I irrigated the canal, placed a cement restrictor down the canal, placed a whistle tip catheter down the canal, placed epinephrine soaked vaginal plaquing down the canal, and then cemented it into place. I placed additional cement over the lateral shoulder of the implant into and around the greater trochanter fragment. This fragment included the attachments of both external rotators and some dis pepe soft tissue attachments as well, maintaining a digastric sleeve which would allow that piece to remain in place. I placed a trial head for a 28+ 5 dual mobility articulation and a dual mobility liner and removed all retractors after the cement had dried and reduced the hip. Hip stability was evaluated with 90 degrees of external rotation and a 45 degree drop test which demonstrated good stability. I evaluated in AP fluoroscopic image which demonstrated diminished leg lengths as compared to the contralateral side which had been lengthened significantly during the index left total hip arthroplasty. An AP hip image was also obtained. This demonstrated good cement fixation. The greater trochanter was appropriately reduced. A 90 degree external rotation image demonstrated good canal fill and cement fixation on the lateral view as well as good reduction of the greater trochanter. The hip was dislocated and I returned to the broaching position. The the trunnion was cleaned and dried. I placed a ceramic head onto the trunnion and impacted it into place on the Romero taper.??All retractors were removed and the hip was reduced. A dilute mixture of betadine and peroxide was used to bathe the soft tissues during final fluoroscopic assessment. Appropriate component positioning was confirmed on an AP pelvis radiograph with the operative and nonoperative legs in 40 degrees of external rotation, evaluating leg length and offset. Appropriate stem fill was evaluated on an AP hip radiograph with the operative leg in neutral rotation. No fractures were identified on these radiographs. Stability was satisfactory with a 90 degree external rotation test as well as a 45 degree drop test. The hip was copiously irrigated with pulse lavage. The capsule was closed with absorbable interrupted suture. The TFL fascia was closed with barbed suture while carefully protecting the lateral femoral cutaneous nerve from entrapment. A mixture of Ropivacaine, Epinephrine, Clonidine and Toradol was infiltrated throughout the soft tissues. The skin was closed with 2-0 and 3-0 sutures. Surgical glue was applied and a soft dressing was placed.??The sponge, instrument and needle counts were reported as being correct at the end of the case.??The patient was transferred from the [facility] table back to a stretcher. The patient emerged from anesthesia without difficulty and was taken to the PACU in a stable condition.? Plan for aftercare: * Anterior hip precautions * Weightbearing as tolerated * Mobilization as soon as the patient has recovered from anesthesia. If physical therapists are unavailable at the time the patient is ready to ambulate, then nursing staff should help patient ambulate * Aspirin 81 twice per day for DVT prophylaxis * Multimodal pain regimen with no IV opioids ordered * Anticipate discharge home tomorrow * Follow up at [facility] in 2 weeks * Detailed postoperative instructions available at [email or web address]
--- NOTE | 2023-10-16 11:15 | PM.PN.1 ---
Subjective Subjective Interval history: Patient seen yesterday evening as well as this morning. Pain very well controlled. Has ambulated briefly. Sensory motor function intact distally. Operative limb is slightly short as had been planned preoperatively. Discussed with her and her postoperative caregiver the manner in which the lateral shoulder of the broach for her composite beam cemented stem placed a bending moment on the greater trochanter and resulted in it displacing. I have advised her to continue using a walker to limit her fall risk. She is weight-bearing as tolerated with aspirin DVT prophylaxis. She has an ice machine for pain control as I have advised. I have advised minimal opioids. She will plan to discharge home today and follow up in the outpatient setting Exam Vital Signs (past 8 hours): - 10/16/23 05:29 10/16/23 08:44 10/16/23 09:10 Temperature 97.4 F L 97.4 F L Pulse Rate 70 83 Respiratory Rate 17 19 Blood Pressure 131/46 L 107/46 L Pulse Oximetry 98 94 Oxygen Delivery Method Room Air Oxygen Flow Rate 0 0 10/16/23 09:27 Temperature Pulse Rate 82 Respiratory Rate Blood Pressure 117/59 L Pulse Oximetry Oxygen Delivery Method Oxygen Flow Rate Oxygen Delivery Method Room Air Oxygen Flow Rate 0 Objective Labs 10/16/23 04:32 Labs: Laboratory Results - last 24 hr 10/16/23 04:32 Hgb 10.4 L Hct 30.3 L PFSH Medical History (Updated 10/11/23 @ 10:41 by Clotilde Jackson RN) History of COVID-19 (2022) Stress Easy bruisability Osteoarthritis Elevated cholesterol Degenerative scoliosis HTN (hypertension) Aortic ectasia CAD in [place] artery Nonrheumatic aortic (valve) stenosis Surgical History (Updated 10/11/23 @ 10:17 by Clotilde Jackson RN) Hx of tonsillectomy Hx of appendectomy H/O aortic valve replacement (05/2016) Hx of bilateral cataract extraction History of total left knee replacement (~2013) History of total left hip replacement (2014) Social History household members: none Smoking Status: Former smoker alcohol intake: current
--- NOTE | 2023-10-16 17:04 | PC.NURSE ---
Pt discharged home at 1700, escorted off floor in wheelchair accompanied by friend and hospital staff. IV removed, discharge teaching completed including follow up appointments, wound care, pain management and worsening symptoms. Questions and concerns addressed. Patient left the floor with all belongings.
== END 2023-10-16 17:19 | disposition home or self-care (01) ==
LOC: OR 11:56 → AC 11:57
PROVIDERS: Referring Provider Orthopaedic Surgery Adult Reconstructive Orthopaedic Surgery; Visit Provider Orthopaedic Surgery Adult Reconstructive Orthopaedic Surgery
PROC: (CPT 27130; principal; 2023-10-15 13:45)
DX: M16.11 Unilateral primary osteoarthritis, right hip (principal); I10 Essential (primary) hypertension; K21.9 Gastro-esophageal reflux disease without esophagitis; I25.10 Atherosclerotic heart disease of native coronary artery without angina pectoris; I35.0 Nonrheumatic aortic (valve) stenosis; E66.9 Obesity, unspecified; Z68.33 Body mass index [BMI] 33.0-33.9, adult; Z96.642 Presence of left artificial hip joint
CPT/HCPCS: 27130; 36415; 73502; 76000; 85014; 85018; 97116; 97161; 97530; C1776; J0171; J0690; J1100; J1170; J2250; J2405; J2704; J3010

== ENCOUNTER → 2024-02-24 14:56 | Outpatient (CLI) | payer OTHER, SELFPAY ==
[2023-10-15 19:27] VITALS: BMI 31.8
[2024-02-24 16:09] LABS: Add Manual Diff / Slide Review NO; Basophils Absolute Auto 100 /uL (0-100); Basophils Percent Auto 0.7 % (0-2); Eosinophils Absolute Auto 200 /uL (0-450); Eosinophils Percent Auto 1.9 % (2-4); Hematocrit 40.3 % (36-46); Hemoglobin 13.9 g/dL (12.0-16.0); Lymphocytes Absolute Auto 2500 /uL (1100-4500); Lymphocytes Percent Auto 30.6 % (25-40); Mean Corpuscular HGB Conc 34.4 % (30-36); Mean Corpuscular Hemoglobin 31.1 PG (26-34); Mean Corpuscular Volume 90.3 fL (80-100); Monocytes Absolute Auto 700 /uL (0-900); Monocytes Percent Auto 8.6 % (3-14); Neutrophils Absolute Auto 4700 /uL (1500-7000); Neutrophils Percent Auto 58.2 % (50-75); Platelet Count 241 X10^3/uL (150-400); Red Blood Cell Count 4.46 X10^6/uL (4.0-5.2); Red Cell Distribution Width 12.9 % (11.6-14.8)
[2024-02-24 17:02] LABS: Vitamin D 25 Hydroxy (D3) 59.9 ng/mL (30.0-100.0)
[2024-02-24 17:03] LABS: Albumin 4.1 g/dL (3.5-5.0); BUN Creatinine Ratio 25.6 (6-22); Blood Urea Nitrogen 22 mg/dL (7-17); Calcium 9.3 mg/dL (8.4-10.2); Carbon Dioxide 26 mmol/L (22-32); Chloride 104 mmol/L (98-107); Estimated Glomerular Filt Rate > 60 mL/min (>60); Glucose 98 mg/dL (80-110); HEMOLYSIS < 15 (0-50); Potassium 4.3 mmol/L (3.4-5.1); Sodium 136 mmol/L (137-145)
[2024-02-25 10:32] LABS: Hemoglobin A1C% w Est Avg Glu 5.7 % (4.0-6.0)
== END ==
PROVIDERS: Referring Provider Orthopaedic Surgery Adult Reconstructive Orthopaedic Surgery; Visit Provider Orthopaedic Surgery Adult Reconstructive Orthopaedic Surgery
DX: R77.0 Abnormality of albumin (principal); E55.9 Vitamin D deficiency, unspecified; R73.9 Hyperglycemia, unspecified; Z01.812 Encounter for preprocedural laboratory examination
CPT/HCPCS: 36415; 80048; 82040; 82306; 83036; 84134; 85025

== ENCOUNTER 2024-05-12 11:35 | Day surgery (SDC) | payer OTHER, SELFPAY ==
[2023-10-15 19:27] VITALS: BMI 31.8
[2024-05-01 09:33] VITALS: BMI 30.2
[2024-05-12] VITALS (12 sets, daily range): BP systolic 100–145; BP diastolic 42–80; PULSE 60–83; RESP 10–17; TEMP 35.3–36.8; O2SAT 94–100; BMI 30.2
--- NOTE | 2024-05-12 06:00 | DI.RAD.S_ITS ---
PROCEDURE: XR KNEE RT 1TO2V INDICATIONS: tka TECHNIQUE: 2 view(s) of the knee acquired. COMPARISON: [facility], [place], XR KNEE 4+ VIEWS RIGHT, 01/06/2024, 14:12. FINDINGS: Bones: Patient is status post knee joint arthroplasty. Hardware components are in expected positions. Visualized bony structures are intact. Soft tissues: Overlying postoperative changes are noted. IMPRESSION: Expected post-operative appearance of a knee arthroplasty. Dictated by: Millie Beatty M.D. on 05/12/2024 at 16:35 Approved by: Millie Beatty M.D. on 05/12/2024 at 16:35
[2024-05-12] MEDS: LACTATED RINGERS 1,000 ML 42 ML IV ×2 (12:00→15:03)
[2024-05-12] MEDS: MELOXICAM 7.5 MG TABLET 15 MG PO (12:01)
[2024-05-12] MEDS: ACETAMINOPHEN 325 MG TABLET 975 MG PO (12:01)
--- NOTE | 2024-05-12 12:46 | PM.PREOP ---
Pre-operative Note Interval Note History & Physical reviewed/Exam performed by Physician: Yes Changes to H&P: No
--- NOTE | 2024-05-12 12:47 | PM.PREOP ---
Pre-operative Note Interval Note History & Physical reviewed/Exam performed by Physician: Yes Changes to H&P: No
[2024-05-12] MEDS: CEFAZOLIN 2 GM/100 ML PREMIX 100 ML IV ×2 (13:26→20:41)
[2024-05-12] MEDS: TRANEXAMIC ACID 1,000 MG VIAL 2000 MG INJ ×2 (13:30→14:44)
--- NOTE | 2024-05-12 13:52 | SUR.OPER ---
Supine on padded OR bed. Pillow under head, arms secured on padded armboards <90 degree abduction. Safety belt across torso. Non-operative leg secured with tape over blanket over lower leg. Operative leg secured in Earl positioner. Foam padded brace at thigh of operative leg.
[2024-05-12] MEDS: ROPIVACAINE/EPI/CLONIDINE/KET 50 ML SYRINGE INJ (13:58)
--- NOTE | 2024-05-12 15:01 | P.OP_ITS ---
Operative Date/Time/Diagnoses Date of procedure: 05/12/24 Pre-op diagnosis: Right knee arthritis Post-op diagnosis: same Procedure & Clinicians Procedure: Right total knee arthroplasty Same procedure as scheduled: Yes Surgeon: Margarito Price Mail Distribution Clerk: Irena Beatty Anesthesia Type: Spinal, Sedation, Peripheral nerve block and Local Operative Notes Estimated Blood Loss (mL): 150 Procedure in detail: Right Gap-Balanced Dylan Persona Medial-Congruent Primary Total Knee Arthroplasty Implants: * Size 9 Cruciate Retaining Femoral Component * Size E Tibial Component * Size 12 Medial Congruent Polyethylene Insert * Unresurfaced Patella Procedure Summary: This 84-year-old female patient had bone quality concordant with her stated age. I have previously operated on her hip and had a portion of her greater trochanter fracture off during removal of broaches for her cemented hip stem so I was well aware of the poor bone quality proceeding today's case. Intraoperatively her knee balanced following proximal tibial and distal femoral resections without the need for a soft tissue release. I did note that there was an area where the saw had cut into the proximal tibia during the distal femoral resection so I took a +6 cut rather than a +4 cut as I typically do in order to ensure that I cut to the bottom of the area where the saw had cut into her soft bone. Likely due to this increase in the thickness of the tibial cut I found that a 12 mm polyethylene insert allowed full extension and provided a tight and balanced flexion gap. Cemented fixation was used Procedure in Detail: This patient was seen preoperatively and evaluated for knee pain which was refractory to numerous nonoperative treatment modalities. Their pain correlated with radiographic changes demonstrating significant degeneration in the knee joint. The risks and benefits of continued nonoperative management versus operative management were discussed at length and all of the patient?s questions were answered. Additional educational materials providing further details beyond our discussion in clinic were provided via a publicly available patient education video which included the incidence of medical complications associated with total knee arthroplasty, reasons for revision following total knee arthroplasty, and patient satisfaction rates following total knee arthroplasty. That video can be accessed at [email or web address] . With this understanding of the risks inherent to the procedure, the patient elected to move forward with operative management. Following preoperative optimization, the patient was scheduled for surgery. The patient was met in the preoperative holding area the day of the procedure and all questions were answered. The patient?s nares were swabbed with betadine in order to decolonize them from MRSA. Informed consent was signed and the right limb was marked with indelible ink.? The patient was brought back to the operating room where anesthesia was induced. The patient was transferred to the operating table and all bony prominences were padded. The operative site was prepped and draped in the usual sterile fashion. A second prep stick was utilized following drape placement. The incision was marked corresponding to the medial aspect of the tibial tubercle and the patella. Ioban was wrapped circumferentially around the knee. Prior to incision, tranexamic acid and cefazolin were administered. Templating images were displayed. A timeout procedure was performed verifying the patient?s identity, medical comorbidities, allergies, relevant medications, anesthesia type and the surgical plan. All present were in agreement. The assistance of a physician jennifer pena was required for positioning, room setup, soft tissue retraction and wound closure. Without this assistance, the procedure would have been significantly more challenging and time consuming.?? The tourniquet was inflated prior to incision. I made an anterior incision over the knee, dissected through the subcutaneous tissues and identified the lateral border of the VMO. Medial and lateral soft tissue flaps were developed. A medial parapatellar arthrotomy was performed ensuring that adequate capsular tissue would remain for closure at the conclusion of the procedure. The hip was brought into extension and the medial soft tissues were released off the joint line of the tibia. Tissue overlying the distal anterior femur was released to allow for later assessment for anterior notching but left in place. A portion of the retropatellar fat pad was excised while protecting the patellar tendon. The patella was everted. The patella was not resurfaced. Osteophytes were excised and a lateral facetectomy was performed. The patella was released from its everted position.?? I flexed the knee to 90 degrees and placed retractors to allow access to the notch. An opening reamer was used to gain access to the femoral canal and an intramedullary blossom was introduced into the canal. Diaphyseal fit was obtained in order to allow a distal femoral resection at 5 degrees relative to the anatomic axis, thereby aiming to achieve mechanical alignment of the eventual implant. A +1 resection was planned and assessed using an betty wing. I then made the cut using a sagittal saw. This provided additional access to the femoral notch. The ACL and PCL were excised. Retractors were placed on the lateral and medial tibia. I hyperflexed the knee while externally rotating it to sublux the tibia anteriorly. I placed a PCL retractor posteriorly and used this to provide additional anterior subluxation. The remainder of the PCL root was released. An intramedullary reamer was used in the ACL footprint to provide access to the tibial canal. An extramedullary guide was positioned to allow a resection perpendicular to the anatomic and mechanical axes of the tibia, thereby aiming to achieve mechanical alignment of the eventual implant. A +6 resection off the lateral tibia was planned and the tibial cutting jig was pinned in place. I evaluated the cut depth, varus-valgus alignment and slope of the planned tibial resection and deemed them satisfactory. I cut the tibia with a sagittal saw while using retractors to protect the MCL, patellar tendon, and posterolateral structures.? The knee was repositioned in extension and the Fuzion soft tissue balancing gauge was introduced. This demonstrated that there was equal tension in the medial and lateral compartments of the knee with the knee in full extension and no additional soft tissue releases were necessary. When 40 pounds of force was applied to the Fuzion device, the extension gap opened to 10 mm. I moved the knee into 90 degrees of flexion, and the Fuzion device was recalibrated by removing a 9 mm barrington to allow assessment of the flexion gap. The Fuzion was placed perpendicular to the resected surface of the tibia and the resected surface of the distal femur. Forty pounds of traction was applied to match the tension of the extension gap. This externally rotated the femur to -1 degrees. Pins were placed in the 10 mm holes. The measured resection guide was placed over the pins to allow sizing. Appropriate sizing was determined and a 4-in-1 block was placed. This was double checked using the Fuzion device to ensure that it would open to an equal distance as the extension gap when the same amount of force was applied. The Fuzion block was also used to assess flexion gap symmetry. An betty wing was used to ensure there would be no anterior notching. Retractors were placed to protect the soft tissues during resection. Captured cuts were performed with a sagittal saw for the anterior and posterior femur as well as the corresponding chamfers.? Trial components were placed and the construct was assessed. Range of motion was assessed by ensuring the knee could achieve full extension and assessing maximum passive knee flexion by elevating the femur and allowing the heel to passively fall towards the buttock. Gap symmetry was assessed by stressing the medial and lateral compartments in both extension and flexion. Laxity was assessed in both extension and flexion and the polyethylene trial was adjusted with shims as necessary. Patellar tracking was assessed with knee flexion. Once satisfied with the construct, I moved forward with implant insertion. Lug holes were drilled in the femur and the tibia was prepped ensuring appropriate sizing and rotation relative to the tibial tubercle.?? The bony ends were irrigated and cement was prepared. Portions of the anterior chamfer cut were utilized as cement restrictors in the femur and tibia where intramedullar rods had been utilized. Cement was placed on the entirety of the undersurface of both the tibial and femoral components. Cement was placed onto the dry tibia and pressurized into the cancellous bone. I impacted the tibial component into place. Cement was removed. The tibia was reduced underneath the femur and placed cement onto the dry surface of the resected femur. I placed the femoral component as well as the intended polyethylene trial. Cement was removed from around the femur. I brought the knee into extension and manually pressurized the construct by pushing on the heel while the cement dried. The knee was bathed in a dilute mixture of betadine and peroxide. A mixture of Ropivacaine, Epinephrine, Clonidine and Toradol was infiltrated throughout the soft tissues into structures including the VMO, patellar tendon, quadriceps tendon, MCL and femoral periosteum. A low adductor canal block was also performed using this mixture unless one had been placed preoperatively by anesthesia. The knee was copiously irrigated with pulse lavage. Once cement had been allowed to dry the knee was again trialed. Range of motion was assessed by ensuring the knee could achieve full extension and assessing maximum passive knee flexion by elevating the femur and allowing the heel to passively fall towards the buttock. Gap symmetry was assessed by stressing the medial and lateral compartments in both extension and flexion. Laxity was assessed in both extension and flexion and the polyethylene trial was adjusted with shims as necessary. Patellar tracking was assessed with knee flexion. The tourniquet was let down and the polyethylene trial was removed. I inspected the knee inspected for excess cement and any residual bleeding. Once hemostasis was achieved I inserted the final polyethylene and ensured appropriate engagement of the dovetail locking mechanism.?? The arthrotomy was closed with absorbable interrupted suture ensuring that this extended to the top of the arthrotomy. This was backed up with running barbed suture throughout the arthrotomy. The skin was closed with 2-0 and 3-0 sutures. Surgical glue was applied and a soft dressing was placed.?The sponge, instrument and needle counts were reported as being correct at the end of the case.??No obvious complications occurred. The patient was transferred from the operating table back to a stretcher. The patient emerged from anesthesia without difficulty and was taken to the PACU in a stable condition.? Plan for aftercare: * Weightbearing as tolerated * Mobilization as soon as the patient has recovered from anesthesia. If physical therapists are unavailable at the time the patient is ready to ambulate, then nursing staff should help patient ambulate * Aspirin 81 twice per day for DVT prophylaxis * Multimodal pain regimen with no IV opioids ordered * Anticipate discharge home tomorrow * Follow up at [facility] in 2 weeks * Detailed postoperative instructions available at [email or web address]
[2024-05-12] MEDS: OXYCODONE IR 5 MG TABLET PO (16:27)
--- NOTE | 2024-05-12 16:49 | PM.PN.1 ---
Subjective Subjective Interval history: Patient seen postoperatively. Resting comfortably upstairs in her hospital room. No acute distress. Flexing extending hallux and ankle. Foot warm and well perfused. Pain well controlled. We will plan to keep her in house overnight and mobilize her tomorrow morning with anticipation of discharge home at that point in time. Exam Vital Signs (past 8 hours): - 05/12/24 12:10 05/12/24 15:35 05/12/24 15:39 Temperature 97.0 F L 98.2 F Pulse Rate 69 83 79 Respiratory Rate 16 12 10 L Blood Pressure 145/69 H 131/55 L 122/52 L Pulse Oximetry 100 95 95 Oxygen Delivery Method Room Air Room Air Room Air 05/12/24 15:44 05/12/24 15:49 05/12/24 16:04 Temperature 97.5 F L 97.5 F L Pulse Rate 77 72 73 Respiratory Rate 12 14 14 Blood Pressure 124/48 L 120/59 L 115/49 L Pulse Oximetry 94 96 96 Oxygen Delivery Method Room Air Room Air Room Air Oxygen Delivery Method Room Air [facility] Medical History (Updated 05/01/24 @ 10:06 by Clotilde Jackson RN) Spinal stenosis History of COVID-19 (2022) Stress Easy bruisability Osteoarthritis Elevated cholesterol Degenerative scoliosis HTN (hypertension) Aortic ectasia CAD in [place] artery Nonrheumatic aortic (valve) stenosis Surgical History (Updated 05/01/24 @ 09:42 by Clotilde Jackson RN) 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
[2024-05-12] MEDS: LACTATED RINGERS 1,000 ML 100 ML IV (17:15)
[2024-05-12] MEDS: ACETAMINOPHEN 325 MG TABLET 650 MG PO (17:15)
[2024-05-12] MEDS: IBUPROFEN 600 MG TABLET PO (17:15)
[2024-05-12] MEDS: METOPROLOL IR 50 MG TABLET PO (20:41)
[2024-05-12] MEDS: ASPIRIN EC 81 MG TABLET PO (20:41)
[2024-05-12] MEDS: DOCUSATE 100 MG CAPSULE 200 MG PO (20:42)
[2024-05-13] VITALS: BP 140/60; PULSE 86; RESP 18; TEMP 35.8; O2SAT 97
[2024-05-13] MEDS: ACETAMINOPHEN 325 MG TABLET 650 MG PO ×2 (01:46→10:55)
[2024-05-13] MEDS: IBUPROFEN 600 MG TABLET PO ×2 (01:47→10:55)
[2024-05-13] MEDS: OXYCODONE IR 5 MG TABLET PO (01:52)
[2024-05-13] MEDS: LACTATED RINGERS 1,000 ML 100 ML IV (01:55)
[2024-05-13 04:36] VITALS: BP 123/56; PULSE 65; RESP 12; TEMP 36.1; O2SAT 96
[2024-05-13 04:44] LABS: Hematocrit 28.2 % (36-46); Hemoglobin 9.4 g/dL (12.0-16.0)
[2024-05-13] MEDS: CEFAZOLIN 2 GM/100 ML PREMIX 100 ML IV (05:43)
[2024-05-13 07:34] VITALS: BP 127/60; PULSE 65; RESP 65; TEMP 36.2; O2SAT 96
[2024-05-13 08:13] VITALS: BP 127/60; PULSE 65
[2024-05-13] MEDS: METOPROLOL IR 50 MG TABLET PO (08:13)
[2024-05-13] MEDS: DOCUSATE 100 MG CAPSULE 200 MG PO (08:13)
[2024-05-13] MEDS: LOSARTAN 25 MG TABLET PO (08:13)
[2024-05-13] MEDS: ASPIRIN EC 81 MG TABLET PO (08:13)
--- NOTE | 2024-05-13 08:31 | PM.DS.1 ---
History of Present Illness History of Present Illness Date Patient Seen: 05/13/24 Time Patient Seen: 08:31 Chief complaint: Right TKA *OPB* Narrative: Operative Date/Time/Diagnoses Date of procedure: 05/12/24 Pre-op diagnosis: Right knee arthritis Post-op diagnosis: same Procedure & Clinicians Procedure: Right total knee arthroplasty Same procedure as scheduled: Yes Surgeon: Margarito Price Associate Professor Of Music: Irena Beatty Anesthesia Type: Spinal, Sedation, Peripheral nerve block and Local Operative Notes Estimated Blood Loss (mL): 150 Procedure in detail: Right Gap-Balanced Dylan Persona Medial-Congruent Primary Total Knee Arthroplasty Implants: Size 9 Cruciate Retaining Femoral Component Size E Tibial Component Size 12 Medial Congruent Polyethylene Insert Unresurfaced Patella Discharge Providers Provider Discharge Date: 05/13/24 Consults: 05/12/24 06:00 Consult to Anesthesiology Routine Comment: Consulting Provider: Anesthesiologist Reason for consultation: Regional block for post operative pain control 05/12/24 16:52 Consult to Discharge Planning Routine Comment: Consult to Physical Therapy Evaluate & Treat Comment: Physician Instructions: postop TKA protocol Discharge provider: Brenda House PA-C Summary Hospital Course Discharge Diagnosis: Right knee osteoarthritis, s/p right total knee arthroplasty Hospital Course: Ms Rai's hospital course was unremarkable. On the morning of POD# 1, she was feeling well and wanted to go home. She had not yet worked w/ PT, but she had been OOB to the bathroom without much difficulty. She was eating and voiding without any problems and her pain was well-controlled with oral medication. Exam Vital Signs (past 8 hours): - 05/13/24 04:36 05/13/24 07:34 05/13/24 08:13 Temperature 97.0 F L 97.1 F L Pulse Rate 65 65 65 Respiratory Rate 12 65 H Blood Pressure 123/56 L 127/60 127/60 Pulse Oximetry 96 96 Oxygen Flow Rate 0 0 Oxygen Delivery Method Room Air Oxygen Flow Rate 0 Narrative Exam Narrative: 3/5 hip flexors, 4/5 hamstrings and quadriceps, 5/5 PF, EF, EHL on right. Sensation to light touch intact throughout RLE. LISA over webril and Aquacel CDI. 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 Discharge Plan Discharge Plan Patient Disposition: Home Provider Discharge Comment: Increase aspirin to 2 times/day for 4 weeks after surgery. Discharge orders & Medications Discharge Orders: Discharge (Order); Ordered 05/13/24 Ordered By: Brenda House Prescriptions: Continued amlodipine 5 mg Tablet 5 mg PO DAILY aspirin 81 mg Tablet,Delayed Release (Dr/Ec) 81 mg PO DAILY acetaminophen 500 mg Tablet 1,000 mg PO BID losartan 25 mg Tablet 25 mg PO DAILY metoprolol tartrate 50 mg Tablet 50 mg PO BID docusate sodium [Colace] 100 mg Capsule 200 mg PO BID Patient Comments: takes 200mg qam, 100mg qam hydrochlorothiazide 12.5 mg Tablet 12.5 mg PO DAILY Follow up/Referrals: Margarito Price MD [Physician] - 05/26/24 1:00 pm (Follow up w/ Gutierrez Doty PA-C, at [facility] office in [place].) Diet/Activity/Treatments Diet: Diet as Tolerated Activity: Weightbearing as tolerated. Walk frequently! Cold/Heat Therapy: Ice to knee as needed for pain. Skin/Wound/Dressing Care Report to your healthcare provider any signs of infection, such as:: chills, fever, night sweats, unusual drainage and unusual redness Dressing: May remove LISA and cotton wrap on 05/15/2024 and shower. Leave dressing in place until follow up in office. No bathing or otherwise soaking incision. Call the office if the dressing becomes saturated inside. Visit Report/Discharge Packet Instructions: DI for Knee Replacement, DI for Prescription Opioid Use Stand Alone Forms: Patient Portal/API, Surgery Discharge Discharge Data Attending Provider: Margarito Price VTE Deep Vein Thrombosis/Pulmonary Embolism Present on Admission: No
--- NOTE | 2024-05-13 09:45 | PT.IIE ---
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) Hx of appendectomy Hx of bilateral cataract extraction Hx of tonsillectomy Medical History (Last Updated 05/01/24 @ 10:06 by Clotilde Jackson, RN) Aortic ectasia 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 Degenerative scoliosis Easy bruisability Elevated cholesterol History of COVID-19 (2022) HTN (hypertension) Nonrheumatic aortic (valve) stenosis Osteoarthritis Spinal stenosis Stress Physical Therapy Inpatient Evaluation/Re-Eval M1 PT/OT-IP Prior Functional Status Start: 05/13/24 08:20 Freq: NEEDED Status: Discharge Protocol: Document 05/13/24 09:45 DLM (Rec: 05/13/24 12:00 DLM [id number]) Medical Review Prior Functional Status Medical History Reviewed Yes Diet/Fluid Consistency Regular Communication WNL, glasses Mobility and Gait Independent, using cane (that has feet) due to right knee pain, ambulates in community. She goes up/down her steps with one rail and her cane Activities of Daily Living and IADL's Independent with equipment at home Prior Functional Level (Other details) Friends and family are all scheduled to stay with her after surgery and provide rides to out-patient Physical Therapy Social History Household Members none Living Arrangements House Number of Floors (Floors) One Floor Number of Stairs To Enter/Railing? 8 steps with bilateral rails, wide steps Home Environment Standard Height Toilet,Walk in Shower,Built-In Shower Seat Home Equipment Front Wheel Walker,Quad Cane, Straight Cane,Raised Toilet Seat Without Armrests,Hand Held Shower,Grab Bars In Shower Employment Status Retired M2 PT-IP Current Condition Start: 05/13/24 08:20 Freq: NEEDED Status: Discharge Protocol: Document 05/13/24 09:45 DLM (Rec: 05/13/24 12:00 DLM [id number]) Physical Therapy Current Condition Current Condition Evaluation Date 05/13/24 Treatment Diagnosis right total knee arthroplasty, impaired gait and mobility Onset Date 05/12/24 M3 PT-IP Subjective Start: 05/13/24 08:20 Freq: NEEDED Status: Discharge Protocol: Document 05/13/24 09:45 DLM (Rec: 05/13/24 12:00 DLM [id number]) Subjective Physical Therapy Visit Type Type Initial Evaluation Visit Start Time 09:00 Visit Stop Time 09:45 Notes 45 minutes Number of OCCUPATIONAL HEALTH AND SAFETY ADVISER Visits 0 Physical Therapy Visit Comments Patient Comments She feels she will be abl to go home today. She has out-pt Physical Therapy scheduled to start . Patient Goals Discharge home today Therapy Pain Assessment Pain When Pain Assessed During Mobility Pain Present Pain Present Pain Reported Location Right Knee Intensity 4 Scale Used Numeric (0 - 10) Description Aching,Tender,Tightness,With Movement Pain Behaviors Facial Grimacing,Guarding Pain Management Techniques Apply Cold,Re-positioning, Timing of Activity with Medications M4 PT-IP Mobility and Gait Start: 05/13/24 08:20 Freq: NEEDED Status: Discharge Protocol: Document 05/13/24 09:45 DLM (Rec: 05/13/24 12:00 DL [id number]) PT-Bed Mobility Assessment Supine to Sit Supine to Sit Independent Sit to Supine Sit to Supine Independent Scooting Scooting to Edge of Bed Independent PT-Transfer Assessment Sit to and From Stand Sit to and from Stand Standby Assistance,Use of Upper Extremities Equipment Transfer Assistive Device Gait Belt,Front Wheeled Walker Transfers Transfer Destination Bed,Chair Transfer Technique Stand Step Pivot Transfer Ability Level of Assist Standby Assistance,Use of Upper Extremities Comments Mobility Comments She uses UE's to assist right LE in/out of bed Gait Assessment Gait Gait Assistance Required: Standby Assistance Distance (Feet) 150 Able to Maintain Weight Bearing Status Yes During Gait Assistive Devices Assistive Device Gait Belt,Front Wheeled Walker Factors Limiting Gait Function Factors Limiting Gait Function Decreased Activity Tolerance, Decreased Strength,Limited Range of Motion,Pain,Poor Balance Comments Gait Comments She demonstrates safe use of FWW for gait, educated pt to assist right LE with UE support on FWW. She keeps right knee extended during swing phase of gait with reports of less pain using this technique. Stair Climbing Assessment Evaluation Level of Assist On Stairs Standby Assistance Devices Stair Climbing Assistive Devices Straight Cane,Right Railing PT-Balance Assessment Sitting Balance and Reactions Static Sitting Balance Ability Normal Dynamic Sitting Balance Ability Normal Standing Balance and Reactions Static Standing Balance Ability Good Dynamic Standing Balance Ability Good Device Used FWW M5 PT-IP Objective Assessments Start: 05/13/24 08:20 Freq: NEEDED Status: Discharge Protocol: Document 05/13/24 09:45 DLM (Rec: 05/13/24 12:00 DLM [id number]) Orientation Orientation/Cognition Level of Alertness Alert Orientation Name,Age,Birthday,Month,Date, Year,Day of Week,Place, Situation Language Function Ability No Deficits Noted Safety Awareness Understands Safety Issues Memory Description No Deficits Noted Gross Range of Motion Upper Extremity ROM Assessment Within Functional Limits Impairments crepitus in shoulders Lower Extremity ROM Assessment Right Impaired Impairments knee 10-80 degrees actively Strength Upper Extremity Strength Assessment Within Functional Limits Lower Extremity Strength Assessment Right Impaired Hip needs assist to lift LE off bed, seated hip flex 2+/5 Knee extension 2+/5, flexion 2+/5 Ankle DF 4+/5 Comments Strength Comments pain right knee are post-op Coordination Assessment Gross Coordination Gross Coordination WNL Sensation Assessment Sensation Gross Sensation WNL Comments Sensation Comments rafaela wrap in place on knee post -op so full testing of the are not completed Muscle Tone Muscle Tone WNL Yes M6 PT-IP Treatment Start: 05/13/24 08:20 Freq: NEEDED Status: Discharge Protocol: Document 05/13/24 09:45 DLM (Rec: 05/13/24 12:00 DLM [id number]) Physical Therapy Treatment Exercises Exercises Ankle Pumps,Quad Sets,Heel Slides,Straight Leg Raises, Short Arc Quads,Passive Knee Extension Hang,Seated Knee Flexion/Extension Education Education Provided Precautions,Weight Bearing Status,Post-Op Packet,Safety Other Treatments Other Treatment Performed No family/friends present this visit. She reports her home caregivers have helped her in the past so she does not feel additional training is needed for them. M7 PT-IP Assessment and Plan Start: 05/13/24 08:20 Freq: NEEDED Status: Discharge Protocol: Document 05/13/24 09:45 DLM (Rec: 05/13/24 12:00 DLM [id number]) PT Summary Assessment and Plan Potential Rehabilitation Potential Excellent Status of Condition at Evaluation Evolving Summary Impairments Pain,ROM,Strength,Balance,Bed Mobility,Transfers,Gait, Activity Tolerance Progress Towards Goals Progressing Toward Goals Assessment Summary Kanchan is alert and resting in bed today. She is motivated to discharge home today post- op day one after right total knee arthroplasty. She has caregiver support scheduled to help at home. She demonstrates good progression of activity this visit. Pt able to ambulate in the nielsen with the FWW, participate in her TKA exercises (at least 5 reps of each) and get up to the chair. Pt left sitting up in the recliner with ice on knee to rest. Will return to complete stair training in preparation for discharge today. Goals Other Goals Up/down 8 steps with rail and cane with Stand by assist. Days to Meet Goals 1 Frequency of Treatment Frequency Of Treatment Twice a Day Other frequency anticipate one more visit to complete stair training Treatment Plan Physical Therapy Treatment Plan Gait Training,Post Op Education,Discharge Planning, Hot or Cold Pack Other Recommendations and Next Treatment stair training Focus Weight Bearing Status Weight Bearing Status Weight Bear as Tolerated Allowed Weight Bearing Amount (enter % right LE with FWW or #) (%) Recommendations To Nursing Amount of Assist Needed Standby Assistance Discharge Recommendations PT Discharge Recommendations Home with Assistance, Outpatient PT Other Discharge Recommendations Friend will be taking her home Transportation Needs at Discharge Private Vehicle
--- NOTE | 2024-05-13 09:56 | PC.NURSE ---
Addendum entered by Debbie Otoole R.N. 05/13/24 11:01: Home instructions given w/understanding HL discontinued. Pt escorted by staff via W/C to waiting vehicle D/C in stable post op status. Original Note: PA here to see; orders for D/C recieved. Pt denies any discomfort Dsg (rafaela & aquacell) CDI. Sitting in chair. Will D/C later this morning. Call light w/in reach. Continue w/plan of care.
--- NOTE | 2024-05-13 10:30 | PT.IPTN ---
Current Diagnoses Unilateral primary osteoarthritis, right knee (05/12/24) Surgery Performed Operation Date: 05/12/24 13:45 Actual Procedures p Total Knee Arthroplasty(Right) - Margarito Price MD Physical Therapy Treatment Note M2 PT-IP Current Condition Start: 05/13/24 08:20 Freq: NEEDED Status: Discharge Protocol: Document 05/13/24 09:45 DLM (Rec: 05/13/24 12:00 DLM [id number]) Physical Therapy Current Condition Current Condition Evaluation Date 05/13/24 Treatment Diagnosis right total knee arthroplasty, impaired gait and mobility Onset Date 05/12/24 M3 PT-IP Subjective Start: 05/13/24 08:20 Freq: NEEDED Status: Discharge Protocol: Document 05/13/24 10:30 DLM (Rec: 05/13/24 12:07 DLM [id number]) Subjective Physical Therapy Visit Type Type Treatment Note Visit Start Time 10:15 Visit Stop Time 10:30 Notes 15 minutes Number of CHEMICAL WORKER Visits 0 Physical Therapy Visit Comments Patient Comments She feels safe to go home today. Therapy Pain Assessment Pain When Pain Assessed During Mobility Pain Present Pain Present Pain Reported Location Right Knee Intensity 4 Scale Used Numeric (0 - 10) Description Aching,Tender,Tightness,With Movement Pain Behaviors Facial Grimacing,Guarding Pain Management Techniques Apply Cold,Re-positioning, Timing of Activity with Medications M4 PT-IP Mobility and Gait Start: 05/13/24 08:20 Freq: NEEDED Status: Discharge Protocol: Document 05/13/24 10:30 DLM (Rec: 05/13/24 12:07 DLM [id number]) PT-Transfer Assessment Sit to and From Stand Sit to and from Stand Independent,Use of Upper Extremities Equipment Transfer Assistive Device Gait Belt,Front Wheeled Walker Transfers Transfer Destination Chair,Wheelchair Transfer Technique Stand Step Pivot Transfer Ability Level of Assist Standby Assistance,Use of Upper Extremities Comments Mobility Comments recliner to/from wheelchair to do stair training Gait Assessment Gait Gait Assistance Required: Standby Assistance Distance (Feet) 25 Assistive Devices Assistive Device Gait Belt,Front Wheeled Walker Factors Limiting Gait Function Factors Limiting Gait Function Decreased Activity Tolerance, Decreased Strength,Limited Range of Motion,Pain,Poor Balance Stair Climbing Assessment Evaluation Level of Assist On Stairs Standby Assistance Devices Stair Climbing Assistive Devices Straight Cane,Right Railing Technique/Endurance Stair Climbing Direction Ascend and Descend Stair Climbing Technique Step to Step Number of Steps Climbed 3 Stair Climbing Set # Repetitions (reps) 1 Comments Stair Climbing Comments Pt shows good technique on stairs. She declined to do more stairs this visit but is confident she can get up her 8 steps to enter the house. PT-Balance Assessment Sitting Balance and Reactions Static Sitting Balance Ability Normal Dynamic Sitting Balance Ability Normal Standing Balance and Reactions Static Standing Balance Ability Good Dynamic Standing Balance Ability Good Device Used FWW M5 PT-IP Objective Assessments Start: 05/13/24 08:20 Freq: NEEDED Status: Discharge Protocol: Document 05/13/24 09:45 DLM (Rec: 05/13/24 12:00 DLM [id number]) Orientation Orientation/Cognition Level of Alertness Alert Orientation Name,Age,Birthday,Month,Date, Year,Day of Week,Place, Situation Language Function Ability No Deficits Noted Safety Awareness Understands Safety Issues Memory Description No Deficits Noted Gross Range of Motion Upper Extremity ROM Assessment Within Functional Limits Impairments crepitus in shoulders Lower Extremity ROM Assessment Right Impaired Impairments knee 10-80 degrees actively Strength Upper Extremity Strength Assessment Within Functional Limits Lower Extremity Strength Assessment Right Impaired Hip needs assist to lift LE off bed, seated hip flex 2+/5 Knee extension 2+/5, flexion 2+/5 Ankle DF 4+/5 Comments Strength Comments pain right knee are post-op Coordination Assessment Gross Coordination Gross Coordination WNL Sensation Assessment Sensation Gross Sensation WNL Comments Sensation Comments rafaela wrap in place on knee post -op so full testing of the are not completed Muscle Tone Muscle Tone WNL Yes M6 PT-IP Treatment Start: 05/13/24 08:20 Freq: NEEDED Status: Discharge Protocol: Document 05/13/24 10:30 DLM (Rec: 05/13/24 12:07 DLM [id number]) Physical Therapy Treatment Education Education Provided Precautions,Weight Bearing Status,Safety Other Treatments Other Treatment Performed no caregivers present this visit M7 PT-IP Assessment and Plan Start: 05/13/24 08:20 Freq: NEEDED Status: Discharge Protocol: Document 05/13/24 10:30 DLM (Rec: 05/13/24 12:07 DLM [id number]) PT Summary Assessment and Plan Summary Progress Towards Goals Safe For Discharge Assessment Summary Kanchan tolerated stair training well. She demonstrates safe technique with one rail and the cane using a step-to pattern. She was able to meet her therapy goals. She appears safe to discharge home today when cleared medically. Notified her nurse that pt was cleared by Physical Therapy. Goals Other Goals Up/down 8 steps with rail and cane with Stand by assist. Days to Meet Goals 1 Frequency of Treatment Frequency Of Treatment Discharge Treatment Plan Other Recommendations and Next Treatment training completed this visit Focus Weight Bearing Status Weight Bearing Status Weight Bear as Tolerated Allowed Weight Bearing Amount (enter % right LE with FWW or #) (%) Recommendations To Nursing Amount of Assist Needed Standby Assistance Discharge Recommendations PT Discharge Recommendations Home with Assistance, Outpatient PT Other Discharge Recommendations Friend will be taking her home Transportation Needs at Discharge Private Vehicle
--- NOTE | 2024-05-13 10:58 | CM.DANOTE ---
DCP Assessment Note Pt is a 84yo F here following right total knee surg with Dr. Price. Pt is POD1. PCP Dr. Lali [facility] and self pay AIR TRAFFIC SUPERVISOR reviewed EMR. Pt had total hip replaced Sep. Discharged home with friend Diya and family support. Has a walker/cane at home. Lives alone/drives. Dc'd home with no needs. Per PT, rec home with assistance. AIR TRAFFIC SUPERVISOR met with pt and friend in room. Already to dc home. Diya will stay with her until son can arrive. Denies any CM needs. P: dc home today with friend support. No CM needs. CM team will follow as needed JUAN Bueno Discharge Planning/Care Management CM Discharge Assessment Start: 05/13/24 10:57 Freq: Status: Active Protocol: Document 05/13/24 10:57 SL (Rec: 05/13/24 10:58 SL [id number]) Discharge Planning Assessment Assigned Ballistics Expert Forensic JUAN Rojas DPOA/Assigned Designee Name pura Weaver Contact Information [phone] Advance Directives? No Advance Directives on File No History Provided By Patient,Medical Record Prior Living Arrangements House Household Members none Type of transporation used prior to Drives own vehicle admit Independent with ADL's Yes Is patient alert and oriented? Yes DME Already Rented / Owned FWW / Walker,Cane Patient/Family Preference OP PT Therapy Comment Patient's friend, Diya, will be staying with her until her sons can arrive. Discharge Plan Home Transportation Arrangement Friend Diya Referrals Initiated None needed Whiteboard Updated in Patient Room with No name and ext. # of Ballistics Expert Forensic Review Status In Process Please Provide Date Initial DC 05/13/24 Assessment Was Performed Next Review Type Continued Stay Review Pre-Anesthesia Assessment Start: 05/01/24 09:33 Freq: Status: Complete Protocol: Document 05/01/24 09:33 CAB (Rec: 05/01/24 10:27 CAB [id number]) Pre-Anesthesia Assessment Patient Information Reviewed Via Phone Assessment Assessment Completed With Patient Diagnostic Results BMP/CMP,CBC Comment Labs @ [facility] 02/24/24, outside EKG 09/14/23 scanned Primary Care Provider Neena Comment Visit 09/17/23 scanned and in surgery folder Seen Specialist in Last 12 Months Yes Specialist Seen Psychologist,Orthopedist Primary Language [place] Preferred Language [place] Percussion Instrument Repairer Required No Height 167.64 cm Weight 84.822 kg Body Mass Index (BMI) 30.2 Hearing Ability Normal Visual Assist Glasses Dentition Type Teeth, Natural Present Barriers to Learning Age related Hx Anesthesia Reactions No Hx Family Anesthesia Reaction No Hx Malignant Hyperthermia No Hx Blood Transfusions No Anesthesia Review Requested No Shelver No alcohol intake current alcohol intake frequency holidays/special occasions only Smoking Status Former smoker how long ago did patient quit smoking Quit age 23 Substance Use Type does not use Pain Present Pain Reported Musculoskeletal Symptoms Abnormal Gait,Difficulty Walking,Joint Pain,Muscle Weakness History of Falling (Recent or History of Yes ) Patient is completely paralyzed or No completely immobile Prosthesis or Orthotic Device Cane,Front Wheel Walker, Wheelchair Mental Status Oriented to own ability Is patient on oxygen? No Does patient have CLEMENT/SOB No Hx Sleep Apnea No CPAP/BIPAP use not prescribed Currently Taking a Beta Henri Yes: Metoprolol Hx Chest Pain No Hx SOB No Hx Syncope or Dizziness No Anti-Coagulant Therapy Yes: 81mg ASA-pt will check w/ Cardiology if needed to hold Has a Psychologist Yes: Last visit 09/22/[address] Brandan Hamlin @ [facility] Cardiac Testing Yes: Echo 12/01/23 Hx Pacemaker/ICD No Comment Cardiac records scanned and in surgery folder Diet Type At Home Regular Dysphagia No Gastrointestinal Symptoms Constipation,Reflux Chronic UTI No Bladder Pattern Frequency Urinary Catheter Present No Hx Urinary Self Catheterization No Diabetes No Patient No Lactating No Hx Drug Resistant Organism No Presence of External or Internal Medical Yes: Rigo hips, left knee, Devices bilat eye IOLs, aortic valve Received a COVID vaccine? Yes Marital Status / Lives With none Current Living Arrangements House Number of Floors (Floors) One Floor Support System Child/Children,Friend(s) Does the Patient Have Assistance After Yes: Friend will stay w/pt to Surgery assist with care at [place] with sons assisting pr Patient Discharge Plan Description Return Home Comment Pt advised overnight length of stay per surgeon Feels Safe in Current Environment Yes Been Physically Hurt or Threatened By a No Person in Current Environment Do you have thoughts of harming yourself None or others? Are you currently considering suicide? No Do you have a plan to hurt yourself or No Plan others? Do You Have Any Spiritual Beliefs That No May Affect Your HC Choices? Do You Have Any Cultural Practices That No May Affect Your HC Choices? Comment Mat Who Can We Speak to About Patient's Care Family, friends Identifying Code for Release of Patient Declines to issue Information Health Care Proxy/Next of Kin Neal (son) Health Care Proxy Emergency Contact Name Jus (son) Niraj (friend) Emergency Contact Phone Number Jus: [phone] Niraj: Advance Directives? No Power of Airplane Tester No PAC Instructions Assistance for 24 hours post- op,Do not shave/clip surgical site,Durable medical equipment ,Medications to take/avoid, Nasal antibiotic,No ETOH/ petroleum product on skin DOS, NPO,Post-op transportation,Pre -surgical wash,Sensory aids, Sturdy shoes/comfortable clothes,Do not bring valuables and remove jewelry Stop Bang Assessment Do you snore loudly (louder than talking pt was unable to answer STOP or loud enough to be heard through questions closed doors) Do you have, or are you being treated Yes: pt has hx for, high blood pressure Is your BMI more than 35 kg/m2 No Age over 50 Yes Estimated neck circumference greater Yes than 40cm or 16in Gender male No Result Negative
== END 2024-05-13 11:04 | disposition home or self-care (01) ==
LOC: OR 11:37 → AC 11:37
PROVIDERS: Referring Provider Orthopaedic Surgery Adult Reconstructive Orthopaedic Surgery; Visit Provider Orthopaedic Surgery Adult Reconstructive Orthopaedic Surgery
PROC: 0SRC0JZ Replacement of Right Knee Joint with Synthetic Substitute, Open Approach (ICD-10-PCS; CPT 27447; principal; 2024-05-12 13:45)
DX: M17.11 Unilateral primary osteoarthritis, right knee (principal)
CPT/HCPCS: 27447; 36415; 73560; 85014; 85018; 97110; 97116; 97162; C1776; J0690; J1170; J2405; J2704; J3010